=== PATIENT | male | born 2000 | race Hispanic/Latino ===

== ENCOUNTER 2024-08-04 20:23 | Emergency (ER) | payer BC ==
[2024-08-04] MEDS ORDERED: NA CHLORIDE 0.9% 1,000 ML ONE (21:08)
[2024-08-04] MEDS ORDERED: PANTOPRAZOLE 40 MG INJ ONE (21:08)
[2024-08-04 21:29] LABS: PT Prothrombin Time 11.6 SECONDS (9.4-12.5); Protime INR 1.04
[2024-08-04 21:30] LABS: Absolute Basophils 0.1 K/uL (0-0.5); Absolute Eosinophils 0.2 K/uL (0-0.5); Absolute Lymphocytes (CBC) 3.3 K/uL (0.7-4.9); Absolute Monocytes 0.7 K/uL (0.1-1.3); Absolute Neutrophil 5.6 K/uL (1.8-8.0); Basophils % 0.9 % (0-1.3); Eosinophils % 2.2 % (0-4.4); Hematocrit 43.8 % (39.6-49.0); Hemoglobin 15.5 g/dL (13.6-17.9); Lymphocytes % 33.1 % (15.3-44.8); MCHC 35.4 g/dL (32.0-36.0); MCV 87.7 fL (80-100); MPV 7.6 fL (7.6-11.3); Monocytes % 7.2 % (3.3-12.3); Neutrophils % 56.6 % (41.7-73.7); Platelets 298 thou/uL (152-406); Red Cell Distribution Width 14.6 % (12.1-15.2)
[2024-08-04 21:32] LABS: ALT/SGPT 26 U/L (16-61); AST/SGOT 15 U/L (15-37); Albumin 4.1 g/dL (3.4-5.0); Albumin/Globulin Ratio 1.1 (1.1-1.8); Alkaline Phosphatase 82 U/L (45-117); Anion Gap 13.1 mEq/L (5.0-15.0); BUN Blood Urea Nitrogen 17 mg/dL (7-18); Bicarbonate 20 mEq/L (21-32); Bilirubin Direct 0.2 mg/dL (0-0.2); Bilirubin Indirect, Calculated 0.6 mg/dL (0.2-0.8); Bilirubin Total 0.8 mg/dL (0.2-1.0); Globulin 3.8 g/dL (2.3-3.5); Glomerular Filtration Rate 88 ml/min (=/>90); Glucose Level 137 mg/dL (74-106); Lipase 21 U/L (13-75); Magnesium 1.9 mg/dL (1.6-2.4); NT PRO-BNP 10 pg/mL (<125); Potassium 3.1 mEq/L (3.5-5.1); Protein, Total 7.9 g/dL (6.4-8.2); Sodium Level 137 mEq/L (136-145)
[2024-08-04 21:38] LABS: Troponin High Sensitivity < 3.0 pg/mL (<58.9)
--- NOTE | 2024-08-04 22:05 | RAD REPORT ---
EXAM DESCRIPTION: RAD - Chest Single View - 08/04/2024 10:01 pm CLINICAL HISTORY: PALPITATIONS Chest pain. COMPARISON: <Comparisons> FINDINGS: Portable technique limits examination quality. The lungs are grossly clear. The heart is normal in size. No displaced fractures. IMPRESSION: No acute intrathoracic process suspected.
[2024-08-04 22:21] LABS: Barbiturates NEGATIVE (NEGATIVE); Benzodiazepines NEGATIVE (NEGATIVE); Cocaine NEGATIVE (NEGATIVE); METHAMPHETAM NEGATIVE (NEGATIVE); Methadone NEGATIVE (NEGATIVE); Opiates NEGATIVE (NEGATIVE); Phencyclidine NEGATIVE (NEGATIVE); THC Cannibis NEGATIVE (NEGATIVE)
--- NOTE | 2024-08-04 22:34 | ER ---
Nurse's Notes [facility] Name: Lavelle Rodriguez Age: 23 yrs Sex: Male : 2000 Arrival Date: 08/04/2024 Time: 20:23 Bed 12 Private MD: Diagnosis: Palpitations;Functional dyspepsia;Hypokalemia Presentation: 08/04 20:38 Chief complaint: Patient states: he started having palpitations while eating dinner me1 about 30 minutes ago. CP 3/10 that is heavy, some SOB and reports hands feel numb. Coronavirus screen: Vaccine status: Patient reports receiving the 2nd dose of the covid vaccine. Ebola Screen: No symptoms or risks identified at this time. Initial Sepsis Screen: Does the patient meet any 2 criteria? No. Patient's initial sepsis screen is negative. Does the patient have a suspected source of infection? No. Patient's initial sepsis screen is negative. Risk Assessment: Do you want to hurt yourself or someone else? Patient reports no desire to harm self or others. Onset of symptoms was August 04, 2024 at 20:00. 20:38 Method Of Arrival: Wheelchair me1 20:38 Acuity: SIVA 3 me1 Historical: - Allergies: 20:40 No Known Allergies; me1 - PMHx: 20:40 Seizure; me1 - PSHx: 20:40 None; me1 - Immunization history:: Adult Immunizations unknown. - Infectious Disease History:: Denies. - Social history:: Smoking status: Reported history of juuling and/or vaping. - Family history:: not pertinent. Screenin:23 [facility] ED Fall Risk Assessment (Adult) History of falling in the last 3 months, jb4 including since admission No falls in past 3 months (0 pts) Confusion or Disorientation No (0 pts) Intoxicated or Sedated No (0 pts) Impaired Gait No (0 pts) Mobility Assist Device Used No (0 pt) Altered Elimination No (0 pt) Score/Fall Risk Level 0 - 2 = Low Risk Oriented to surroundings, Maintained a safe environment, Educated pt \T\ family on fall prevention, incl call for assistance when getting out of bed. Abuse screen: Denies threats or abuse. Denies injuries from another. Nutritional screening: No deficits noted. Tuberculosis screening: No symptoms or risk factors identified. Assessment: 21:23 General: Appears in no apparent distress. Behavior is calm, cooperative. Pain: jb4 Complains of pain in chest Pain does not radiate. Pain currently is 5 out of 10 on a pain scale. Quality of pain is described as tight Pain began suddenly. Neuro: Level of Consciousness is awake, alert, obeys commands, Oriented to person, place, time, situation. Cardiovascular: Reports chest pain, Patient's skin is warm and dry. Cardiovascular: Reports palpitations. Respiratory: Airway is patent Respiratory effort is even, unlabored, Respiratory pattern is regular, symmetrical. GI: No signs and/or symptoms were reported involving the gastrointestinal system. Abdomen is flat, non-distended. : No signs and/or symptoms were reported regarding the genitourinary system. EENT: No signs and/or symptoms were reported regarding the EENT system. Derm: No signs and/or symptoms reported regarding the dermatologic system. Musculoskeletal: No signs and/or symptoms reported regarding the musculoskeletal system. 22:53 Reassessment: Patient appears in no apparent distress at this time. Patient and/or jb4 family updated on plan of care and expected duration. Pain level reassessed. Patient is alert, oriented x 3, equal unlabored respirations, skin warm/dry/pink. Vital Signs: 20:38 BP 120 / 92; Pulse 78; Resp 20; Temp 98.8; Pulse Ox 99% ; Weight 77.11 kg; Height 5 ft. me1 9 in. ; Pain 3/10; 22:53 BP 117 / 71; Pulse 76; Resp 16; Pulse Ox 99% on R/A; jb4 20:38 Body Mass Index 25.10 (77.11 kg, 175.26 cm) pr1 20:38 Pain Scale: Adult [facility] ED Course: 20:24 Patient arrived in ED. mr 20:40 Triage completed. pr1 20:40 Arm band placed on Patient placed in an exam room. pr1 20:41 EKG completed in triage. Results shown to . [facility] 20:53 Chinedu Song MD is Attending Physician. [facility] 21:03 Inserted saline lock: 20 gauge in right antecubital area, using aseptic technique. [facility] Blood collected. Flushed with 10 mL NS. 21:03 Initial lab(s) drawn, by pr, sent to lab. [facility] 21:23 Patient has correct armband on for positive identification. Bed in low position. Call jb4 light in reach. Side rails up X 1. Provided Education on: use of call low. Client placed on continuous cardiac and pulse oximetry monitoring. NIBP monitoring applied. monitoring manager on. Pulse ox on. NIBP on. Warm blanket given. 21:58 Urine Drug Screen Sent. tm6 22:03 XRAY Chest (1 view) In Process Unspecified. EDNE 22:34 Eulogio Farley MD is Referral Physician. [facility] 22:34 Duran Zayas MD is Referral Physician. [facility] 22:53 No provider procedures requiring assistance completed. IV discontinued, intact, jb4 bleeding controlled, No redness/swelling at site. Pressure dressing applied. Administered Medications: 21:22 Drug: NS 0.9% IV 1000 ml IV at 1 bolus Per protocol; 1000 mL bolus Route: IV; Rate: 1 jb4 bolus; Site: right antecubital; 21:23 Drug: Pantoprazole IVP 40 mg IVP once Route: IVP; Site: right antecubital; jb4 22:53 Drug: Potassium PO Effervescent Tablet 50 mEq PO once; dissolve in 4 ounces of water or jb4 juice Route: PO; 22:53 Follow up: Response: Medication administered at discharge. jb4 Medication: 21:23 VIS not applicable for this client. jb4 Outcome: 22:34 Discharge ordered by . [facility] 22:53 Discharged to home ambulatory, jb4 22:53 Condition: stable 22:53 Discharge instructions given to patient, Instructed on discharge instructions, follow up and referral plans. medication usage, Demonstrated understanding of instructions, follow-up care, medications, Prescriptions given X 1, 22:55 Patient left the ED. jb4 Signatures: Dispatcher [employer] EDChinedu Rodriguez MD MD cha Rivera, Mary, Reg Reg Grady Garcia, RN RN jb4 Tamra Ratliff, MARTHA RN pr1 Ignacia King [facility] Muna Perez RN RN tm6
--- NOTE | 2024-08-04 22:34 | EDPHYS ---
Physician Documentation [facility] Name: Lavelle Rodriguez Age: 23 yrs Sex: Male : 2000 Arrival Date: 08/04/2024 Time: 20:23 Bed 12 Private MD: ED Physician Chinedu Song HPI: 08/04 21:24 This 23 yrs old Male presents to ER via Wheelchair with complaints of kayce Palpitations. 21:24 The patient presents with a history of irregular heart beat, heart racing, heart kayce skipping beats. Context: The symptoms occur with light activity. Onset: The symptoms/episode began/occurred just prior to arrival. Duration: The patient or guardian reports multiple episodes, that have now resolved. Modifying factors: The symptoms are aggravated by eating, The symptoms are alleviated by nothing. Associated signs and symptoms: The patient has no apparent associated signs or symptoms. Severity of symptoms: At their worst the symptoms were moderate in the emergency department the symptoms are unchanged. The patient has not experienced similar symptoms in the past. Historical: - Allergies: 20:40 No Known Allergies; me1 - PMHx: 20:40 Seizure; me1 - PSHx: 20:40 None; me1 - Immunization history:: Adult Immunizations unknown. - Infectious Disease History:: Denies. - Social history:: Smoking status: Reported history of juuling and/or vaping. - Family history:: not pertinent. ROS: 21:24 Constitutional: Negative for fever, chills, and weight loss, Eyes: Negative for injury, kayce pain, redness, and discharge, ENT: Negative for injury, pain, and discharge, Neck: Negative for injury, pain, and swelling, Respiratory: Negative for shortness of breath, cough, wheezing, and pleuritic chest pain, Abdomen/GI: Negative for abdominal pain, nausea, vomiting, diarrhea, and constipation, Back: Negative for injury and pain, : Negative for injury, bleeding, discharge, and swelling, MS/Extremity: Negative for injury and deformity, Skin: Negative for injury, rash, and discoloration, Neuro: Negative for headache, weakness, numbness, tingling, and seizure, Psych: Negative for depression, anxiety, suicide ideation, homicidal ideation, and hallucinations, Allergy/Immunology: Negative for hives, rash, and allergies, Endocrine: Negative for neck swelling, polydipsia, polyuria, polyphagia, and marked weight changes, Hematologic/Lymphatic: Negative for swollen nodes, abnormal bleeding, and unusual bruising, 21:24 Cardiovascular: Positive for chest pain, palpitations, Exam: 21:24 Constitutional: This is a well developed, well nourished patient who is awake, alert, kayce and in no acute distress. Head/Face: Normocephalic, atraumatic. Eyes: Pupils equal round and reactive to light, extra-ocular motions intact. Lids and lashes normal. Conjunctiva and sclera are non-icteric and not injected. Cornea within normal limits. Periorbital areas with no swelling, redness, or edema. ENT: Nares patent. No nasal discharge, no septal abnormalities noted. Tympanic membranes are normal and external auditory canals are clear. Oropharynx with no redness, swelling, or masses, exudates, or evidence of obstruction, uvula midline. Mucous membranes moist. Neck: Trachea midline, no thyromegaly or masses palpated, and no cervical lymphadenopathy. Supple, full range of motion without nuchal rigidity, or vertebral point tenderness. No Meningismus. Chest/axilla: Normal chest wall appearance and motion. Nontender with no deformity. No lesions are appreciated. Cardiovascular: Regular rate and rhythm with a normal S1 and S2. No gallops, murmurs, or rubs. Normal PMI, no JVD. No pulse deficits. Respiratory: Lungs have equal breath sounds bilaterally, clear to auscultation and percussion. No rales, rhonchi or wheezes noted. No increased work of breathing, no retractions or nasal flaring. Abdomen/GI: Soft, non-tender, with normal bowel sounds. No distension or tympany. No guarding or rebound. No evidence of tenderness throughout. Back: No spinal tenderness. No costovertebral tenderness. Full range of motion. Male : Normal genitalia with no discharge or lesions. Skin: Warm, dry with normal turgor. Normal color with no rashes, no lesions, and no evidence of cellulitis. MS/ Extremity: Pulses equal, no cyanosis. Neurovascular intact. Full, normal range of motion. Neuro: Awake and alert, GCS 15, oriented to person, place, time, and situation. Cranial nerves II-XII grossly intact. Motor strength 5/5 in all extremities. Sensory grossly intact. Cerebellar exam normal. Normal gait. Psych: Awake, alert, with orientation to person, place and time. Behavior, mood, and affect are within normal limits. 21:24 ECG was reviewed by the Attending Physician. 21:24 Musculoskeletal/extremity: DVT Exam: No signs of deep vein thrombosis. no pain, no swelling, no tenderness, negative Homans' sign noted on exam, no appreciated bluish discoloration, no erythema, no increased warmth, Vital Signs: 20:38 BP 120 / 92; Pulse 78; Resp 20; Temp 98.8; Pulse Ox 99% ; Weight 77.11 kg; Height 5 ft. me1 9 in. ; Pain 3/10; 22:53 BP 117 / 71; Pulse 76; Resp 16; Pulse Ox 99% on R/A; jb4 20:38 Body Mass Index 25.10 (77.11 kg, 175.26 cm) me1 20:38 Pain Scale: Adult me1 MDM: 20:53 Patient medically screened. kayce 21:30 PATTI Risk Score: Total Score = 0. Differential diagnosis: arrythmia, dehydration, kayce stress disorder. Data reviewed: vital signs, nurses notes, lab test result(s), EKG, radiologic studies, CT scan, plain films. Consideration of Admission/Observation Escalation of care including admission/observation considered. I considered the following discharge prescriptions or medication management in the emergency department Medications were administered in the Emergency Department. See MAR. Test considered but Not performed: CT: no ct chest, no gb usg. 08/04 20:56 Order name: Basic Metabolic Panel; Complete Time: 22:33 [facility] 08/04 20:56 Order name: CBC with Diff; Complete Time: 22:33 [facility] 08/04 20:56 Order name: LFT's; Complete Time: 22:33 [facility] 08/04 20:56 Order name: Magnesium; Complete Time: 22:33 [facility] 08/04 20:56 Order name: NT PRO-BNP; Complete Time: 22:33 [facility] 08/04 20:56 Order name: PT-INR; Complete Time: 22:33 [facility] 08/04 20:56 Order name: Troponin HS; Complete Time: 22:33 [facility] 08/04 20:56 Order name: Lipase; Complete Time: 22:33 [facility] 08/04 20:56 Order name: Basic Metabolic Panel jb4 08/04 20:56 Order name: CBC with Diff [facility] 08/04 20:56 Order name: Troponin HS [facility] 08/04 21:26 Order name: Urine Drug Screen; Complete Time: 22:33 [facility] 08/04 20:56 Order name: XRAY Chest (1 view); Complete Time: 22:33 [facility] 08/04 20:56 Order name: EKG; Complete Time: 20:57 [facility] 08/04 20:56 Order name: Cardiac monitoring; Complete Time: 21:23 [facility] 08/04 20:56 Order name: EKG - Nurse/Tech; Complete Time: 21:23 [facility] 08/04 20:56 Order name: IV Saline Lock; Complete Time: 21:23 [facility] 08/04 20:56 Order name: Labs collected and sent; Complete Time: : [facility] 08/04 20:56 Order name: O2 Per Protocol; Complete Time: 21:23 [facility] 08/04 20:56 Order name: O2 Sat Monitoring; Complete Time: 21:23 [facility] 08/04 20:56 Order name: Cardiac monitoring; Complete Time: 21:22 [facility] 08/04 20:56 Order name: EKG - Nurse/Tech; Complete Time: 21:22 [facility] 08/04 20:56 Order name: IV Saline Lock; Complete Time: 21:22 [facility] 08/04 20:56 Order name: Labs collected and sent; Complete Time: 21:22 [facility] 08/04 20:56 Order name: O2 Per Protocol; Complete Time: 21:22 [facility] 08/04 20:56 Order name: O2 Sat Monitoring; Complete Time: 21:22 jb4 EC:24 Rate is 75 beats/min. Rhythm is regular. QRS [place] is Normal. RI interval is normal. QRS kayce interval is normal. QT interval is normal. No Q waves. T waves are Normal. No ST changes noted. Clinical impression: NSR w/ Non-specific ST/T Changes and No evidence of ischemia. Interpreted by me. Reviewed by me. Administered Medications: 21:22 Drug: NS 0.9% IV 1000 ml IV at 1 bolus Per protocol; 1000 mL bolus Route: IV; Rate: 1 jb4 bolus; Site: right antecubital; 21:23 Drug: Pantoprazole IVP 40 mg IVP once Route: IVP; Site: right antecubital; jb4 22:53 Drug: Potassium PO Effervescent Tablet 50 mEq PO once; dissolve in 4 ounces of water or jb4 juice Route: PO; 22:53 Follow up: Response: Medication administered at discharge. jb4 Disposition Summary: 08/04/24 22:34 Discharge Ordered Notes: Location: Home kayce Problem: new kayce Symptoms: have improved kayce Condition: Stable kayce Diagnosis - Palpitations kayce - Functional dyspepsia kayce - Hypokalemia kayce Followup: kayce - With: Private Physician - When: 2 - 3 days - Reason: Recheck today's complaints, Continuance of care, Re-evaluation by your physician Followup: kayce - With: Eulogio Farley MD - When: 2 - 3 days - Reason: Recheck today's complaints, Re-evaluation by your physician Followup: kayce - With: Duran Zayas MD - When: 2 - 3 days - Reason: Recheck today's complaints, Re-evaluation by your physician Discharge Instructions: - Discharge Summary Sheet kayce - Potassium Content of Foods kayce - Palpitations kayce - Aspirin and Your Heart kayce - Palpitations, Svoj-cu-[id number] kayce - Hypokalemia kayce Forms: - Medication Reconciliation Form kayce - Antibiotic Education kayce - Prescription Opioid Use kayce - Patient Portal Instructions kayce - Leadership Thank You Letter kayce Prescriptions: - Protonix 40 mg Oral Tablet - take 1 tablet ORAL route once daily; 30 tablet; Refills: 0, Product Selection kayce Permitted Signatures: Dispatcher [employer] Chinedu Wagner MD MD cha Bryson, James, RN RN jb4 Tamra Ratliff, RN RN me1 Corrections: (The following items were deleted from the chart) 21:23 20:57 Abdomen Limited+US.RAD.BRZ ordered. EDMS EDMS 22:00 20:57 Chest Single View+RAD.RAD.BRZ ordered. EDMS EDMS
[2024-08-04] MEDS ORDERED: POTASSIUM 25 MEQ EFFERV TAB ONE (22:42)
[2024-08-04 23:32] VITALS: TEMP 97.7; O2SAT 100
[2024-08-04 23:35] VITALS: BP 122/69
--- NOTE | 2024-08-05 12:08 | EKG ---
Test Date: 2024-08-04 Test Time: 20:35:02 Legal Support Assistant: MEASUREMENT RESULTS: Intervals: Rate: 75 FL: 132 QRSD: 94 QT: 378 QTc: 422 [place]: P: 63 FL: 132 QRS: 87 T: 65 INTERPRETIVE STATEMENTS: Normal sinus rhythm Normal ECG No previous ECG available for comparison Electronically Signed On 08-05-24 12:06:14 CDT by Cesar Herrera
== END 2024-08-04 22:55 | disposition home or self-care (01) ==
LOC: ER 20:23
DX: R00.2 Palpitations (principal); K30 Functional dyspepsia; E87.6 Hypokalemia
CPT/HCPCS: 93005; 85025; 80048; 36415; 83735; 85610; 80076; 84484; 83690; 83880; 80307; 71045; 96374; 99285; J2470; J7030